=== PATIENT | female | born 1945 | race Caucasian/White ===

== ENCOUNTER 2023-07-25 07:13 | Inpatient (IN) | payer MEDICARE, OTHER, SELFPAY ==
[2023-07-25] VITALS (14 sets, daily range): BP systolic 108–166; BP diastolic 39–70; PULSE 72–92; RESP 17–25; TEMP 36.8–37.1; O2SAT 90–95; BMI 25.0
--- NOTE | 2023-07-25 07:35 | XR_ITS ---
WS: [id number] Exam: XR chest 1V portable [id number] Date/Time of Exam: 07/25/2023 7:42 AM Reason For Exam: dyspnea/cough No previous exams. There is plaque atelectasis in the mid RIGHT lung. The lungs are otherwise clear a nd fully inflated. Normal heart size. No pleural effusions. The mediastinum is normal in contour. Bon y structures appear normal. IMPRESSION: 1. Plaque atelectasis in the RIGHT midlung zone. 2. No acute process noted.
[2023-07-25] MEDS: metoclopramide 5 mg/mL SDV 2 mL 10 MG IVP (07:41)
[2023-07-25 07:48] LABS: Basophils # 0.1 10^3/uL (0.0-0.1); Basophils % 0.5 %; Eosinophils % 0.1 %; Hematocrit 44.5 % (36-47); Lymphocytes # 0.8 10^3/uL (0.8-4.8); Lymphocytes % 5.4 %; Mean Corpuscular HGB Conc 33.5 g/dL (30-55); Mean Corpuscular Hemoglobin 30.9 pg (27-33); Mean Corpuscular Volume 92.3 fl (85-98); Mean Platelet Volume 10.1 fL (7.4-10.4); Monocytes # 1.1 10^3/uL (0.2-0.9); Monocytes % 6.9 %; Neutrophils % 86.8 %; Nucleated Red Blood Cells % 0 %; Platelet Count 274 10^3/cmm (157-399); Red Blood Count 4.82 10^6/uL (3.85-5.65); Red Cell Distribution Width 11.8 % (12.1-15.1); White Blood Count 15.23 10^3/uL (3.29-11.43)
--- NOTE | 2023-07-25 07:51 | ECG_ITS ---
[facility] Test Date: 2023-07-25 Pat Name: Praveena Juan Department: Room: Gender: Female Detective Narcotics And Vice: : 1945 Requested By: Ajit Groves Order Number: [id number] Karol MD: Kody Wilson M.D. Measurements Intervals [place] Rate: 84 P: 57 CO: 171 QRS: 13 QRSD: 85 T: 57 QT: 270 QTc: 319 Interpretive Statements SINUS RHYTHM NONSPECIFIC T-WAVE ABNORMALITY No previous ECG available for comparison Electronically Signed On 07-25-2023 21:03:44 COMPOSITE BOND WORKER by Kody Wilson M.D. [id number]
--- NOTE | 2023-07-25 07:54 | ED_ITS ---
HPI - Altered Mental Status 2 General: Chief Complaint: Altered Mental Status Stated Complaint: ams, trouble swallowing Time Seen by Provider: 07/25/23 07:34 Source: patient Mode of arrival: ambulatory History of Present Illness: 78-year-old female presents emergency ro om with her daughter. She is confused overnight coughing having some vomiting and generally weak. She has previously had esophageal impaction 6 months ago had a EGD and was dilated. I do not recall a particular food that fever to get stuck today she has not had any fever sweats or chills. Difficult to get to answer questions. I have to continually redirect her to follow. She denies chest pain or abdominal pain denies dysuria. Family has not noted any hemoptysis or coffee-ground emesis MD complaint: altered mental status and confusion Onset (ago): hour(s) Severity: moderate Consistency of symptoms: Getting Worse Review of Systems 2 Const: Denies: fever(s) or chills Card: Denies: chest pain Resp: Denies: dyspnea GI: Denies: abdominal pain : Denies: dysuria, urinary frequency or urinary urgency Skin/Breast: Denies: rash PFSH ED 2 PFSH: Medical History (Updated 07/29/23 @ 08:22 by Ajit Diaz DO) Hyperlipidemia Depression Dementia Esophageal stricture Social History (Updated 07/25/23 @ 12:32 by Jack Oviedo MD) Smoking and tobacco/nicotine status: never used tobacco/nicotine Alcohol intake: never Physical Exam 2 Const: COMMON NORMALS: no acute distress GENERAL APPEARANCE: cooperative and comfortable ORIENTATION/CONSCIOUSNESS: Yes awake, Yes oriented to person, Yes oriented to place and Yes oriented to time HENMT: COMMON NORMALS: normocephalic, atraumatic and hearing grossly normal bilaterally HEAD & SCALP: normocephalic and atraumatic Resp: COMMON NORMALS: normal respiratory effort, No retractions, No use of accessory muscles and clear to auscultation bilaterally AUSCULTATION: clear to auscultation bilaterally Cardio: COMMON NORMALS: regular rate, regular rhythm and No murmurs present (Cardio) RATE: regular rate RHYTHM: regular rhythm GI: COMMON NORMALS: Soft to palpation and No hepatosplenomegaly present A USCULTATION: Yes normoactive bowel sounds PALPATION: Yes Soft to palpation, No Tenderness to palpation present (GI), No Guarding due to palpation present (GI) and Yes No hepatosplenomegaly present Extremity: COMMON NORMALS: normal to inspection, capillary refill normal, no clubbing, cyanosis or edema, no calf tenderness and no pedal edema Neuro: SENSORIUM/ORIENTATION: Yes oriented to person, Yes oriented to place and Yes oriented to time Skin: COMMON NORMALS: no rashes or lesions noted GENERAL SKIN EXAM: no rashes or lesions noted Course 2 Vital Signs: Vital signs: Vital Signs Temperature 98.1 F 07/26/23 08:00 Pulse Rate 69 07/26/23 08:00 Respiratory Rate 18 07/26/23 08:00 Blood Pressure 128/74 07/26/23 08:00 Pulse Oximetry 89 L 07/26/23 09:54 Oxygen Delivery Me thod Room Air 07/26/23 08:00 Oxygen Flow Rate 2 07/26/23 08:00 MDM - Altered Mental Status Medical Decision Making Pneumonia. Patient has a history of esophageal stricture with we did do a swallow test in the emergency room she was able to swallow without vomiting or having any coughing. Her pneumonia is right upper lobe initially started on ceftriaxone and Zithromax discussed with hospitalist orders written therapy to evaluate and cover for possible aspiration. Family initially had stated the patient was not behaving normally seemed off. She has some baseline dementia this resolved after oxygen was applied Medical Records I reviewed the patient's medical records. Lab Data I reviewed the patient's lab results. 07/26/23 05:24 07/26/23 05:24 Laboratory Results WBC 15.23 10^3/uL (3.29-11.43) H 07/25/23 07:30 RBC 4.82 10^6/uL (3.85-5.65) 07/25/23 07:30 Hgb 14.90 g/dL (11.27-16.99) 07/25/23 07:30 Hct 44.5 % (36-47) 07/25/23 07:30 MCV 92.3 fl (85-98) 07/25/23 07:30 MCH 30.9 pg (27-33) 07/25/23 07:30 MCHC 33.5 g/dL (30-55) 07/25/23 07:30 RDW 11.8 % (12.1-15.1) L 07/25/23 07:30 Plt Count 274 10^3/cmm (157-399) 07/25/23 07:30 MPV 10.1 fL (7.4-10.4) 07/25/23 07:30 Neut % (Auto) 86.8 % 07/25/23 07:30 Lymph % (Auto) 5.4 % 07/25/23 07:30 [place] % (Auto) 6.9 % 07/25/23 07:30 Eos % (Auto) 0.1 % 07/25/23 07:30 Baso % (Auto) 0.5 % 07/25/23 07:30 Neut # (Auto) 13.20 10^3/uL (1.8-7.7) H 07/25/23 07:30 Lymph # (Auto) 0.8 10^3/uL (0.8-4.8) 07/25/23 07:30 [place] # (Auto) 1.1 10^3/uL (0.2-0.9) H 07/25/23 07:30 Eos # (Auto) 0.0 10^3/uL (0.0-0.8) 07/25/23 07:30 Baso # (Auto) 0.1 10^3/uL (0.0-0.1) 07/25/23 07:30 Nucleated RBC % (auto) 0 % 07/25/23 07:30 Nucleated RBCs # 0.0 /100WBC 07/25/23 07:30 Sodium 140 mmol/L (136-145) 07/25/23 08:05 Potassium 4.0 mmol/L (3.5-5.1) 07/25/23 08:05 Chloride 102 mmol/L (98-107) 07/25/23 08:05 Carbon Dioxide 25 mmol/L (22-29) 07/25/23 08:05 Anion Gap 17.0 (5-19) 07/25/23 08:05 BUN 11 mg/dL (8-23) 07/25/23 08:05 Creatinine 0.6 mg/dL (0.5-0.9) 07/25/23 08:05 GFR Calculation Not Reportable 07/25/23 08:05 Glucose 136 mg/dL (65-115) H 07/25/23 08:05 Calculated Osmolality 291 mOsm/kg (285-295) 07/25/23 08:05 Lactic Acid 2.1 mmol/L (0.5-2.2) 07/25/23 08:05 Calcium 9.3 mg/dL (8.5-10.5) 07/25/23 08:05 Magnesium 2.1 mg/dL (1.7-2.3) 07/25/23 08:05 Total Bilirubin 0.3 mg/dL (0.15-1.2) 07/25/23 08:05 AST 21 U/L (0-32) 07/25/23 08:05 ALT 18 U/L (0-33) 07/25/23 08:05 Alkaline Phosphatase 111 U/L (35-105) H 07/25/23 08:05 Creatine Kinase 64 U/L (26-192) 07/25/23 08:05 Troponin T Baseline 9 ng/L (0-10) 07/25/23 08:05 Troponin T 120 Minute 8.82 ng/L (0-10) 07/25/23 10:15 Delta Troponin T -0.18 ABS# (0-10) L 07/25/23 10:15 Total Protein 6.7 g/dL (6.6-8.7) 07/25/23 08:05 Albumin 4.1 g/dL (3.5-5.2) 07/25/23 08:05 Globulin 2.6 g/dL (1.3-4.6) 07/25/23 08:05 Lipase 47 U/L (13-60) 07/25/23 08:05 Urine Color Yellow (Yellow) 07/25/23 08:00 Urine Appearance Sl hazy (CLEAR) A 07/25/23 08:00 Urine pH 5 (5-7) 07/25/23 08:00 Ur Specific [place] 1.020 (1.005-1.030) 07/25/23 08:00 Urine Protein Neg (Negative) 07/25/23 08:00 Urine Glucose (UA) Norm (Normal) 07/25/23 08:00 Urine Ketones Negative (Negative) 07/25/23 08:00 Urine Blood Neg (Negative) 07/25/23 08:00 Urine Nitrate Negative (Negative) 07/25/23 08:00 Urine Bilirubin Neg (Negative) 07/25/23 08:00 Urine Urobilinogen Neg mg/dL (Negative) 07/25/23 08:00 Ur Leukocyte Esterase Negative (Negative) 07/25/23 08:00 Urine RBC Rare /hpf (0-2) 07/25/23 08:00 Urine WBC 0-4 /hpf (0-5) H 07/25/23 08:00 Ur Squamous Epith Cells 0-4 /hpf (0-5) H 07/25/23 08:00 Amorphous Sediment Not Reportable 07/25/23 08:00 Urine Bacteria Trace /hpf (NONE) 07/25/23 08:00 Urine Mucus 1+ /hpf 07/25/23 08:00 Coronavirus 229E (PCR) Not detected (NOT DETECT) 07/25/23 10:40 Influenza Type A Ag negative (Negative) 07/25/23 10:40 Influenza Type B Ag negative (Negative) 07/25/23 10:40 SARS-CoV-2 (PCR) Not detected (NOT DETECT) 07/25/23 10:40 All radiology interpretation(s) finalized by discharge Discharge Plan Discharge Patient Disposition: Admitted As Inpatient Admit Provider: Jack Oviedo Clinical Impression: Pneumonia, Dementia, Esophageal stricture Condition: Stable Discharge Diet: Usual diet Discharge Activity: Increase activity as tolerated Coding Level of Care Code ED Frame Bender for Isidro Abrams
[2023-07-25 08:36] LABS: Alanine Aminotransferase 18 U/L (0-33); Albumin Level 4.1 g/dL (3.5-5.2); Alkaline Phosphatase 111 U/L (35-105); Aspartate Amino Transferase 21 U/L (0-32); Blood Urea Nitrogen 11 mg/dL (8-23); Calcium 9.3 mg/dL (8.5-10.5); Carbon Dioxide 25 mmol/L (22-29); Chloride 102 mmol/L (98-107); Creatinine Clr Calc Pharmacy 61.3501; Globulin 2.6 g/dL (1.3-4.6); Glucose 136 mg/dL (65-115); Lipase 47 U/L (13-60); Magnesium 2.1 mg/dL (1.7-2.3); Osmolality Calculated 291 mOsm/kg (285-295); Sodium 140 mmol/L (136-145); Total Bilirubin 0.3 mg/dL (0.15-1.2); Total Protein 6.7 g/dL (6.6-8.7)
[2023-07-25 08:38] LABS: Lactic Sepsis W/Reflex 2.1 mmol/L (0.5-2.2)
[2023-07-25 08:48] LABS: Add Urine Culture? No; Add Urine Microscopic? YES; Bacteria Urine TRACE /hpf; Bilirubin Urine Neg (Negative); Blood Urine Neg (Negative); Glucose Urine UA Norm (Normal); Ketones Urine Negative (Negative); Leukocyte Esterase Urine Negative (Negative); Mucus Urine 1+ /hpf; Nitrate Urine Negative (Negative); Protein Urine Neg (Negative); RBC Urine RARE /hpf (0-2); Squamous Epithelial Cell Urine 0-4 /hpf (0-5); Urine Appearance SL Hazy (CLEAR); Urine Color Yellow (Yellow); Urobilinogen Urine Neg (Negative); WBC Urine 0-4 /hpf (0-5); pH Urine 5 (5-7)
[2023-07-25 08:49] LABS: Troponin(5th) Baseline 9 ng/L (0-10)
[2023-07-25 08:50] LABS: Creatine Phosphokinase 64 U/L (26-192)
--- NOTE | 2023-07-25 08:55 | PC.PHAR ---
OTHER DAUGHTER WILL BE OVER SHORTLY TO VERIFY MEDICATIONS AND ADD SUPPLEMENTS. 07/25/23
--- NOTE | 2023-07-25 09:16 | CT_ITS ---
WS: [id number] CT HEAD NONCONTRAST HISTORY: Altered mental status TECHNIQUE: Contiguous axial imaging performed through the brain in 3.0 mm imaging. Bone and soft tiss ue windows. Sagittal and coronal reformats reviewed. All CT scans at [facility] use at least one of these dose optimization techniques: automated exposure control; mA and/or kV adjustment per pa tient size (includes targeted exams where dose is matched to clinical indication); or iterative recon struction. DLP: 1040.88 mGy.cm COMPARISON: None available. No acute intracranial hemorrhage, midline shift or mass effect. Mild atrophy and mild small vessel ischemic disease. No prior infarct. No lacunar infarcts. Ventricles: Normal size with no hydrocephalus. No inferior displacement of the cerebellar tonsils. Paranasal sinuses: As visualized are clear. Mastoid air cells: Well pneumatized. Cerumen in the LEFT external auditory canal. Calvarium and scalp: Skull is intact with no soft tissue edema or swelling. IMPRESSION: 1. No acute intracranial hemorrhage or edema. 2. Mild atrophy and small vessel ischemic disease.
--- NOTE | 2023-07-25 09:51 | PC.PHAR ---
MEDICATIONS VERIFIED BY DAUGHTER AND ADDED OTC FLAXSEED, MULTIVITAMIN, AND PRESERVISION 2
[2023-07-25 10:01] LABS: Reflex Lactate Order REFLEX LACTIC ORDERD
[2023-07-25] MEDS: cefTRIAXone 1,000 MG in sodium chloride 0.9% (plus) 50 ML 100 MG IV (10:18)
--- NOTE | 2023-07-25 10:27 | ECG_ITS ---
[facility] Test Date: 2023-07-25 Pat Name: Praveena Juan Department: Room: Gender: Female Professor Of Pathology: : 1945 Requested By: Ajit Groves Order Number: [id number] Karol MD: Kody Wilson M.D. Measurements Intervals [place] Rate: 77 P: 62 MT: 172 QRS: 15 QRSD: 86 T: 32 QT: 313 QTc: 355 Interpretive Statements SINUS RHYTHM NONSPECIFIC T-WAVE ABNORMALITY Compared to ECG 07/25/2023 07:51:50 No significant changes Electronically Signed On 07-25-2023 21:14:59 GUMMED TAPE PRESS OPERATOR by Kody Wilson M.D. [email or web address] [email or web address] [email or web address] [email or web address] [email or web address]/store/[id number]
[2023-07-25 10:49] LABS: Troponin 5 2HR 8.82 ng/L (0-10)
[2023-07-25 10:50] LABS: Troponin 5 2HR Delta -0.18 ABS# (0-10)
[2023-07-25] MEDS: azithromycin 500 MG in sodium chloride 0.9% 250 ML 250 MG IV (10:51)
[2023-07-25 11:12] LABS: Influenza A by IFA negative (Negative); Influenza B by IFA negative (Negative)
--- NOTE | 2023-07-25 11:49 | P.HP_ITS ---
Documented by User: NEAL Macias [facility] [[email or web address] 07/25/23 12:59 Providers/Chief Complaint 2 Chief Complaint: ams, trouble swallowing History of Present Illness Praveena Juan is a 78 year old female who has past medical history of dementia, esophageal stricture, anxiety, depression, and hyperlipidemia who presents today to the emergency department for altered mental status and trouble swallowing. Patient is a 78-year-old female with past medical history of esophageal stricture, hyperlipidemia, and dementia presents to the emergency department today for evaluation of altered mental status and trouble swallowing. Mrs. Juan lives at home with her , this morning her found her standing in front of the bathroom mirror gagging and shaking a lot . He reports that she would not respond to him so he brought her in to be evaluated. Patient was poor historian due to underlying mild dementia, at bedside was able to answer most of the questions. Mrs. Keene has been coughing up thick yellow phlegm the last 2 weeks, and reports that she does not wear oxygen at home but is currently requiring supplemental oxygen at 2 L nasal cannula. She has been taking Tylenol and cough drops as needed at home but this has not alleviated her symptoms. Patient denies fever, chills, or aspirating on food or home medications. About 6 months ago Mrs. Juan had her esophagus dilated due to previous frequent aspiration/ esophageal stricture. It is noted that this is the first time she has had a dilation. Has been reports that her swallowing has been better since then. While in ED patient received azithromycin, rocephin, and reglan. COVID PCR and flu swabs were obtained and pending currently. Blood cultures, CBC, BMP, troponin, UA, EKG, chest x-ray, head CT were obtained. Patient to be be transferred to Medical Surgical floor. Review of Systems 2 Const: Denies: fever(s), chills, change in appetite or night sweats Eyes: Denies: change in vision, blurry vision, eye discharge or eye redness ENMT: Reports: dry mouth; Denies: throat pain, enlarged tonsils, odynophagia, oral sores or nasal congestion Card: Denies: chest pain, palpitations, edema or swelling of feet/ankles Resp: Reports: dyspnea, productive cough and change in phlegm color GI: Reports: dysphagia and diarrhea; Denies: abdominal pain, nausea or vomiting : Reports: urinary frequency; Denies: flank pain or difficulty voiding Musc: Denies: neck pain, back pain or extremity pain Skin/Breast: Denies: rash, pruritus, erythema or skin swelling Neuro: Reports: confusion; Denies: headache(s) Medications/Allergies Home Medications Medication Instructions Recorded Confirmed Last Taken Type alprazolam 0.25 mg tablet 0.25 mg PO TID PRN Anxiety 07/25/23 07/25/23 07/24/23 History citalopram 10 mg tablet 10 mg PO QAM 07/25/23 07/25/23 07/25/23 History citalopram 20 mg tablet 20 mg PO QAM 07/25/23 07/25/23 07/25/23 History donepezil 10 mg tablet 10 mg PO BID 07/25/23 07/25/23 07/25/23 History flaxseed oil 1,000 mg capsule 1,000 mg PO DAILY 07/25/23 07/25/23 07/25/23 History gemfibrozil 600 mg tablet 600 mg PO BID 07/25/23 07/25/23 07/25/23 History memantine 10 mg tablet 10 mg PO BID 07/25/23 07/25/23 07/25/23 History multivitamin 1 tab PO DAILY 07/25/23 07/25/23 07/25/23 History omeprazole 40 mg capsule,delayed 40 mg PO QAM 07/25/23 07/25/23 07/25/23 History release pravastatin 20 mg tablet 20 mg PO BEDTIME 07/25/23 07/25/23 07/24/23 History trazodone 100 mg tablet 100 mg PO BEDTIME 07/25/23 07/25/23 07/24/23 History vit C 250 mg-vit E 90 mg-zinc 40 1 tab PO BID 07/25/23 07/25/23 07/25/23 History mg-copper 1 [id number]-[id number] capsule (PreserVision AREDS-2) Allergies Allergy/AdvReac Type Severity Reaction Status Date / Time No Known Allergies Allergy Verified 07/25/23 07:23 PFSH Acute 2 PFSH: Medical History (Updated 07/25/23 @ 12:32 by Jack Oviedo MD) Hyperlipidemia Depression Dementia Esophageal stricture Social History (Updated 07/25/23 @ 12:32 by Jack Oviedo MD) Smoking and tobacco/nicotine status: never used tobacco/nicotine Alcohol intake: never Vitals/I&O/Wt Last Vital Signs Temp 98.5 F 07/25/23 07:20 Pulse 74 07/25/23 11:00 Resp 20 H 07/25/23 11:00 BP 108/43 07/25/23 11:00 Pulse Ox 90 07/25/23 11:00 O2 Del Method Nasal Cannula 07/25/23 11:00 O2 Flow Rate 2 07/25/23 11:00 07/24/23 07/25/23 07/25/23 22:59 06:59 14:59 Intake Total 50 / 50 Balance 50 / 50 Weight last 48 hrs Weight 160 lb Physical Exam 2 Narrative: General exam is a white female, occasional coughing fits. HEENT: Atraumatic and normocephalic. Oropharynx clear Neck is supple no lymphadenopathy or thyromegaly Cardiovascular regular rate and rhythm, 2/6 systolic murmur. Lungs clear bilateral upper lobes, diminished in lower lobes. On 2L NC. Abdomen is soft with positive bowel sounds. No obvious organomegaly exam is deferred Extremities no edema noted. Skin no rash noted Neuro no focal deficits, mild underlying dementia Data 07/25/23 07:30 07/25/23 08:05 Other Labs: WBC 15, Neut# 13 Troponin WNLs UA normal. Flu negative, Covid PCR pending. Blood cultures pending. EKG: Sinus rhythm with a heart rate in the 70s. Head CT IMPRESSION: 1. No acute intracranial hemorrhage or edema. 2. Mild atrophy and small vessel ischemic disease. Chest X-ray IMPRESSION: 1. Plaque atelectasis in the RIGHT midlung zone. 2. No acute process noted. Micro: Microbiology 07/25/23 08:11 Blood Culture - Preliminary Blood SPECIMEN COLLECTED 07/25/23 08:05 Blood Culture - Preliminary Blood SPECIMEN COLLECTED A&P Assessment and plan (1) Pneumonia: IV Rocephin, Azithromycin Breathing treatments as needed. Oxygen supplementation, currently on 2L NC. Speech therapy to evaluate for possible aspiration due to history of esophageal stricture. Obtain sputum culture (2) Hypoxia: Titrate oxygen as needed Breathing treatments as needed Inspiratory spirometer and flutter valve (3) Esophageal stricture: About 6 months ago patient had her esophagus dilated due to frequent aspiration/ esophageal stricture. It is noted that this is the first time she has had a dilation. Aspiration precautions Speech therapy to evaluate aspiration (4) Dementia: Acute encephalopathy secondary to pneumonia was suspected on arrival to emergency department, as family stated Mrs. Juan was not acting like herself this morning. It was later noted the patient has underlying dementia. During my evaluation with Mrs. Juan in the emergency department acute encephalopathy was ruled out as family at bedside stated Ms. Juan was back to her baseline. (5) Hyperglycemia: Continue to monitor Check A1c level Coding Level of Care Code 47191 Diagnoses Pneumonia J18.9 Hypoxia R09.02 Esophageal stricture K22.2 Dementia F03.90 Hyperglycemia R73.9 Time Spent (min) 59 Documented by User: Jack Oviedo MD 07/25/23 13:35 Providers/Chief Complaint 2 Admitting Physician: Jack Oviedo MD Chief Complaint: ams, trouble swallowing Medications/Allergies Home Medications Medication Instructions Recorded Confirmed Last Taken Type alprazolam 0.25 mg tablet 0.25 mg PO TID PRN Anxiety 07/25/23 07/25/23 07/24/23 History citalopram 10 mg tablet 10 mg PO QAM 07/25/23 07/25/23 07/25/23 History citalopram 20 mg tablet 20 mg PO QAM 07/25/23 07/25/23 07/25/23 History donepezil 10 mg tablet 10 mg PO BID 07/25/23 07/25/23 07/25/23 History flaxseed oil 1,000 mg capsule 1,000 mg PO DAILY 07/25/23 07/25/23 07/25/23 History gemfibrozil 600 mg tablet 600 mg PO BID 07/25/23 07/25/23 07/25/23 History memantine 10 mg tablet 10 mg PO BID 07/25/23 07/25/23 07/25/23 History multivitamin 1 tab PO DAILY 07/25/23 07/25/2324 History omeprazole 40 mg capsule,delayed 40 mg PO QAM 07/25/23 07/25/23 07/25/23 History release pravastatin 20 mg tablet 20 mg PO BEDTIME 07/25/23 07/25/23 07/24/23 History trazodone 100 mg tablet 100 mg PO BEDTIME 07/25/23 07/25/23 07/24/23 History vit C 250 mg-vit E 90 mg-zinc 40 1 tab PO BID 07/25/23 07/25/23 07/25/23 History mg-copper 1 [id number]-gwvmwe capsule (PreserVision AREDS-2) Allergies Allergy/AdvReac Type Severity Reaction Status Date / Time No Known Allergies Allergy Verified 07/25/23 07:23 PFSH Acute 2 PFSH: Medical History (Updated 07/25/23 @ 12:32 by Jack Oviedo MD) Hyperlipidemia Depression Dementia Esophageal stricture Social History (Updated 07/25/23 @ 12:32 by Jack Oviedo MD) Smoking and tobacco/nicotine status: never used tobacco/nicotine Alcohol intake: never Data 07/25/23 07:30 07/25/23 08:05 Other data: Chest x-ray per my review demonstrates a right platelike atelectasis and infiltrate EKG per my review demonstrates sinus rhythm, normal axis, nonspecific ST T wave abnormality CT head per my review no hemorrhage, acute change A&P Assessment and plan (1) Pneumonia: (2) Hypoxia: (3) Esophageal stricture: About 6 months ago patient had her esophagus dilated due to frequent aspiration/ esophageal stricture. It is noted that this is the first time she has had a dilation. Aspiration precautions (4) Dementia: (5) Hyperglycemia: Plan Other medical problems as listed in past medical history Full code Lovenox for DVT prophylaxis Attestations 2 Medical Necessity Statement*: Will require greater than 2 midnight stay for evaluation of pneumonia with hypoxia as well as treatment with IV antibiotics. Diagnoses Pneumonia J18.9 Hypoxia R09.02 Esophageal stricture K22.2 Dementia F03.90 Hyperglycemia R73.9 Time Spent (min) 59
[2023-07-25 12:37] LABS: Adenovirus Not Detected (NOT DETECT); Chlamydia Pneumoniae Not Detected (NOT DETECT); Coronavirus 229E,HKU1,NL63,OC4 Not Detected (NOT DETECT); Human Metapneumovirus Not Detected (NOT DETECT); Human Rhinovirus/Enterovirus Not Detected (NOT DETECT); Influenza A Not Detected (NOT DETECT); Influenza A H1 Not Detected (NOT DETECT); Influenza A H1-2009 Not Detected (NOT DETECT); Influenza A H3 Not Detected (NOT DETECT); Influenza B Not Detected (NOT DETECT); Mycoplasma Pneumoniae Not Detected (NOT DETECT); Parainfluenza Virus Type 1 Not Detected (NOT DETECT); Parainfluenza Virus Type 2 Not Detected (NOT DETECT); Parainfluenza Virus Type 3 Not Detected (NOT DETECT); Parainfluenza Virus Type 4 Not Detected (NOT DETECT); Respiratory Syncytial Virus A Not Detected (NOT DETECT); Respiratory Syncytial Virus B Not Detected (NOT DETECT); SARS-COV-2 Not Detected (NOT DETECT)
--- NOTE | 2023-07-25 13:53 | ECG_ITS ---
[facility] Test Date: 2023-07-25 Pat Name: Praveena Juan Department: Room: 273 Gender: Female Electric Bath Attendant: : 1945 Requested By: Ajit Groves Order Number: [id number] Reading MD: Kody Wilson M.D. Measurements Intervals [place] Rate: 75 P: 51 SC: 192 QRS: 7 QRSD: 89 T: 18 QT: 399 QTc: 447 Interpretive Statements SINUS RHYTHM NONSPECIFIC T-WAVE ABNORMALITY Compared to ECG 07/25/2023 10:27:27 No significant changes Electronically Signed On 07-25-2023 21:17:03 SHIP ENGINES OPERATING ENGINEER by Kody Wilson M.D. [id number]
[2023-07-25] MEDS: ipratropium-albuterol 3 mL Neb INHALATION ×2 (16:07→20:59)
[2023-07-25 16:38] LABS: Troponin 5 6HR 16.15 ng/L (0-10); Troponin 5 6HR Delta 7.15 ng/L (0-12)
[2023-07-25] MEDS: gemfibrozil 600 mg Tablet PO (18:03)
[2023-07-25] MEDS: memantine 5 mg tablet 10 MG PO (18:03)
[2023-07-25] MEDS: donepezil 5 MG Tablet 10 MG PO (18:03)
[2023-07-25] MEDS: enoxaparin 40 mg/0.4 mL Syringe SUBCUT (18:03)
[2023-07-25] MEDS: ALPRAZolam 0.5 mg Tablet 0.25 MG PO (20:59)
[2023-07-25] MEDS: atorvastatin 40 mg Tablet 20 MG PO (21:00)
[2023-07-25] MEDS: trazodone 100 mg Tablet PO (21:00)
[2023-07-26] VITALS: BP 107/58; PULSE 68; RESP 18; TEMP 36.8; O2SAT 92
[2023-07-26 05:00] VITALS: BP 116/66; PULSE 67; RESP 18; TEMP 36.8; O2SAT 94
[2023-07-26 05:29] VITALS: PULSE 69
[2023-07-26] MEDS: citalopram 20 mg Tablet PO (05:39)
[2023-07-26] MEDS: pantoprazole DR 40 mg Tablet PO (05:39)
[2023-07-26] MEDS: citalopram 20 mg Tablet 10 MG PO (05:39)
[2023-07-26 06:03] LABS: Basophils # 0.1 10^3/uL (0.0-0.1); Basophils % 0.5 %; Eosinophils # 0.1 10^3/uL (0.0-0.8); Eosinophils % 1.2 %; Hematocrit 38.6 % (36-47); Lymphocytes # 1.9 10^3/uL (0.8-4.8); Lymphocytes % 20.1 %; Mean Corpuscular HGB Conc 33.2 g/dL (30-55); Mean Corpuscular Hemoglobin 31.4 pg (27-33); Mean Corpuscular Volume 94.8 fl (85-98); Mean Platelet Volume 10.2 fL (7.4-10.4); Monocytes % 10.7 %; Neutrophils # 6.41 10^3/uL (1.8-7.7); Neutrophils % 67.1 %; Nucleated Red Blood Cells % 0 %; Platelet Count 237 10^3/cmm (157-399); Red Blood Count 4.07 10^6/uL (3.85-5.65); Red Cell Distribution Width 11.8 % (12.1-15.1); White Blood Count 9.55 10^3/uL (3.29-11.43)
[2023-07-26 06:33] LABS: Alanine Aminotransferase 13 U/L (0-33); Albumin Level 3.5 g/dL (3.5-5.2); Alkaline Phosphatase 90 U/L (35-105); Anion Gap 9.8 (5-19); Aspartate Amino Transferase 17 U/L (0-32); Blood Urea Nitrogen 14 mg/dL (8-23); Calcium 8.3 mg/dL (8.5-10.5); Carbon Dioxide 28 mmol/L (22-29); Chloride 105 mmol/L (98-107); Creatinine Clr Calc Pharmacy 63.0577; Globulin 2.5 g/dL (1.3-4.6); Glucose 121 mg/dL (65-115); Osmolality Calculated 290 mOsm/kg (285-295); Potassium 3.8 mmol/L (3.5-5.1); Sodium 139 mmol/L (136-145); Total Bilirubin 0.4 mg/dL (0.15-1.2)
[2023-07-26 08:00] VITALS: BP 128/74; PULSE 69; PULSE 73; RESP 16; RESP 18; TEMP 36.7; O2SAT 90; O2SAT 95
[2023-07-26] MEDS: ipratropium-albuterol 3 mL Neb INHALATION (08:52)
[2023-07-26] MEDS: donepezil 5 MG Tablet 10 MG PO (09:40)
[2023-07-26] MEDS: gemfibrozil 600 mg Tablet PO (09:41)
[2023-07-26] MEDS: memantine 5 mg tablet 10 MG PO (09:42)
[2023-07-26 09:54] VITALS: O2SAT 89; O2SAT 90
--- NOTE | 2023-07-26 10:22 | PM.DCS ---
Discharge Providers Date of Admission: 07/25/23 11:07 Date of Discharge: July 26, 2023 Attending Provider at Admission: Jack Oviedo MD Attending Provider at Discharge: Jack Oviedo MD Diagnoses at Discharge Discharge Diagnosis (1) Pneumonia: Status: Acute (2) Hypoxia: Status: Acute (3) Esophageal stricture: Status: Acute (4) Dementia: Status: Acute (5) Hyperglycemia: Status: Acute Reason for Visit Reason for Visit: ams, trouble swallowing Hospital Course Hospital Course Praveena is a 78-year-old white female with history of dementia and esophageal stricture who presented to the hospital with coughing up yellowish sputum, increased confusion. She was found to be slightly hypoxic, and platelike atelectasis right middle lobe and concern of pneumonia. White blood cell count was slightly elevated. She was placed on Rocephin and azithromycin, and placed on observation in the hospital. Overnight she seemed to improve. Mental status was at close to baseline according to . It was thought she could go home. She was not requiring oxygen after home oxygen evaluation. She did not have any trouble swallowing the next morning. Family was present during my discussion regarding discharge with the patient and the , and ask appropriate questions and agreed with the plan. I asked that she follow-up with her primary care provider in 3 to 5 days. I also added an 81 mg aspirin daily to her regimen. She will finish up a short course of antibiotics. She had no chest discomfort during her hospital stay or on presentation. COVID and influenza were negative. I asked that she follow-up with her primary care provider in approximately 3 to 5 days. Physical Exam Narrative: General exam no distress Neck supple Cardiovascular regular rate and rhythm Lungs clear Abdomen is soft Extremities no sinus clubbing edema Discharge Data Studies Completed and Pending Completed Studies During Hospitalization Category Date Time Status CT head wo con* [id number] Stat Cat Scan 07/25/23 09:16 Completed XR chest 1V portable [id number] Stat Exams 07/25/23 07:35 Completed Pending at discharge Category Date Time Status Blood Culture Stat Lab 07/25/23 08:11 Results Sputum Culture and Gram Stain Routine Lab 07/25/23 13:22 Uncollected Laboratory Results WBC 9.55 10^3/uL (3.29-11.43) 07/26/23 05:24 RBC 4.07 10^6/uL (3.85-5.65) 07/26/23 05:24 Hgb 12.80 g/dL (11.27-16.99) 07/26/23 05:24 Hct 38.6 % (36-47) 07/26/23 05:24 MCV 94.8 fl (85-98) 07/26/23 05:24 MCH 31.4 pg (27-33) 07/26/23 05:24 MCHC 33.2 g/dL (30-55) 07/26/23 05:24 RDW 11.8 % (12.1-15.1) L 07/26/23 05:24 Plt Count 237 10^3/cmm (157-399) 07/26/23 05:24 MPV 10.2 fL (7.4-10.4) 07/26/23 05:24 Neut % (Auto) 67.1 % 07/26/23 05:24 Lymph % (Auto) 20.1 % 07/26/23 05:24 [place] % (Auto) 10.7 % 07/26/23 05:24 Eos % (Auto) 1.2 % 07/26/23 05:24 Baso % (Auto) 0.5 % 07/26/23 05:24 Neut # (Auto) 6.41 10^3/uL (1.8-7.7) 07/26/23 05:24 Lymph # (Auto) 1.9 10^3/uL (0.8-4.8) 07/26/23 05:24 Johnston # (Auto) 1.0 10^3/uL (0.2-0.9) H 07/26/23 05:24 Eos # (Auto) 0.1 10^3/uL (0.0-0.8) 07/26/23 05:24 Baso # (Auto) 0.1 10^3/uL (0.0-0.1) 07/26/23 05:24 Nucleated RBC % (auto) 0 % 07/26/23 05:24 Nucleated RBCs # 0.0 /100WBC 07/26/23 05:24 Sodium 139 mmol/L (136-145) 07/26/23 05:24 Potassium 3.8 mmol/L (3.5-5.1) 07/26/23 05:24 Chloride 105 mmol/L (98-107) 07/26/23 05:24 Carbon Dioxide 28 mmol/L (22-29) 07/26/23 05:24 Anion Gap 9.8 (5-19) 07/26/23 05:24 BUN 14 mg/dL (8-23) 07/26/23 05:24 Creatinine 0.7 mg/dL (0.5-0.9) 07/26/23 05:24 GFR Calculation Not Reportable 07/26/23 05:24 Glucose 121 mg/dL (65-115) H 07/26/23 05:24 Calculated Osmolality 290 mOsm/kg (285-295) 07/26/23 05:24 Lactic Acid 2.1 mmol/L (0.5-2.2) 07/25/23 08:05 Calcium 8.3 mg/dL (8.5-10.5) L 07/26/23 05:24 Magnesium 2.1 mg/dL (1.7-2.3) 07/25/23 08:05 Total Bilirubin 0.4 mg/dL (0.15-1.2) 07/26/23 05:24 AST 17 U/L (0-32) 07/26/23 05:24 ALT 13 U/L (0-33) 07/26/23 05:24 Alkaline Phosphatase 90 U/L (35-105) 07/26/23 05:24 Creatine Kinase 64 U/L (26-192) 07/25/23 08:05 Troponin T Baseline 9 ng/L (0-10) 07/25/23 08:05 Troponin T 120 Minute 8.82 ng/L (0-10) 07/25/23 10:15 Delta Troponin T -0.18 ABS# (0-10) L 07/25/23 10:15 Troponin T Hi Sens 6Hr 16.15 ng/L (0-10) H 07/25/23 15:10 Troponin T Hi Sens 6Hr Delta 7.15 ng/L (0-12) 07/25/23 15:10 Total Protein 6.0 g/dL (6.6-8.7) L 07/26/23 05:24 Albumin 3.5 g/dL (3.5-5.2) 07/26/23 05:24 Globulin 2.5 g/dL (1.3-4.6) 07/26/23 05:24 Lipase 47 U/L (13-60) 07/25/23 08:05 Urine Color Yellow (Yellow) 07/25/23 08:00 Urine Appearance Sl hazy (CLEAR) A 07/25/23 08:00 Urine pH 5 (5-7) 07/25/23 08:00 Ur Specific [place] 1.020 (1.005-1.030) 07/25/23 08:00 Urine Protein Neg (Negative) 07/25/23 08:00 Urine Glucose (UA) Norm (Normal) 07/25/23 08:00 Urine Ketones Negative (Negative) 07/25/23 08:00 Urine Blood Neg (Negative) 07/25/23 08:00 Urine Nitrate Negative (Negative) 07/25/23 08:00 Urine Bilirubin Neg (Negative) 07/25/23 08:00 Urine Urobilinogen Neg mg/dL (Negative) 07/25/23 08:00 Ur Leukocyte Esterase Negative (Negative) 07/25/23 08:00 Urine RBC Rare /hpf (0-2) 07/25/23 08:00 Urine WBC 0-4 /hpf (0-5) H 07/25/23 08:00 Ur Squamous Epith Cells 0-4 /hpf (0-5) H 07/25/23 08:00 Amorphous Sediment Not Reportable 07/25/23 08:00 Urine Bacteria Trace /hpf (NONE) 07/25/23 08:00 Urine Mucus 1+ /hpf 07/25/23 08:00 Coronavirus 229E (PCR) Not detected (NOT DETECT) 07/25/23 10:40 Influenza Type A Ag negative (Negative) 07/25/23 10:40 Influenza Type B Ag negative (Negative) 07/25/23 10:40 SARS-CoV-2 (PCR) Not detected (NOT DETECT) 07/25/23 10:40 Vitals Last Vital Signs Temp 98.1 F 07/26/23 08:00 Pulse 69 07/26/23 08:00 Resp 18 07/26/23 08:00 BP 128/74 07/26/23 08:00 Pulse Ox 89 L 07/26/23 09:54 O2 Del Method Room Air 07/26/23 08:00 O2 Flow Rate 2 07/25/23 20:58 Discharge Plan Discharge Patient Disposition: Home Condition: Stable Prescriptions: New azithromycin 250 mg Tablet 500 mg PO DAILY Qty: 1 0RF cefdinir 300 mg Capsule 300 mg PO BID Qty: 14 0RF aspirin 81 mg capsule 81 mg PO DAILY Qty: 30 0RF Continued multivitamin Tablet 1 tab PO DAILY citalopram 10 mg tablet 10 mg PO QAM Rx Instructions: TAKES WITH 20 MG TO =30MG donepezil 10 mg tablet 10 mg PO BID omeprazole 40 mg capsule,delayed release(DR/EC) 40 mg PO QAM flaxseed oil 1,000 mg Capsule 1,000 mg PO DAILY alprazolam 0.25 mg tablet 0.25 mg PO TID PRN (Reason: Anxiety) citalopram 20 mg tablet 20 mg PO QAM Rx Instructions: TAKES WITH 10 MG TO=30MG trazodone 100 mg tablet 100 mg PO BEDTIME gemfibrozil 600 mg tablet 600 mg PO BID pravastatin 20 mg tablet 20 mg PO BEDTIME memantine 10 mg tablet 10 mg PO BID PreserVision AREDS-2 250-90-40-1 mg Capsule 1 tab PO BID Discharge Orders: Discharge Order (Routine); Ordered 07/26/23 Ordered By: Jack Oviedo Referrals: Lalit Madrigal MD [Referring] - 4-7 days Discharge Diet: Usual diet Discharge Activity: Increase activity as tolerated Patient Instructions: Altered Mental Status (ED), Opioid Safety, Pain Management Activity Restrictions/Additional Instructions: Take all medicine as prescribed Follow-up with your primary care provider 3 to 5 days Finish antibiotics as noted Aspirin 81 mg daily. Note that patient only on cefdinir twice daily, for the next 7 days. The next dose of Zithromax should be tomorrow, and only 1 time. Discharge Attestations Time Spent in Discharge Care*: greater than 30 min Quality Metrics Clinical Quality Measures [ No reported AMI, CVA or VTE this stay] Coding Level of Care Code 52533 Total time (in minutes) for Discharge: 31 Diagnoses Pneumonia J18.9 Hypoxia R09.02 Esophageal stricture K22.2 Dementia F03.90 Hyperglycemia R73.9
[2023-07-26] MEDS: azithromycin 250 mg Tablet 500 MG PO (11:13)
[2023-07-26] MEDS: cefdinir 300 MG CAPSULE PO (11:13)
== END 2023-07-26 11:19 | disposition home health service (06) | DRG 195 ==
LOC: ER 10:59 → MEDSURG 12:57
PROVIDERS: Admitting Provider Internal Medicine; Emergency Provider Family Medicine; Visit Provider Internal Medicine
DX: J18.9 Pneumonia, unspecified organism (principal); K22.2 Esophageal obstruction; R73.9 Hyperglycemia, unspecified; F03.90 Unspecified dementia, unspecified severity, without behavioral disturbance, psychotic disturbance, mood disturbance, and anxiety; F41.9 Anxiety disorder, unspecified; F32.A Depression, unspecified; E78.5 Hyperlipidemia, unspecified; R41.82 Altered mental status, unspecified
CPT/HCPCS: 36415; 70450; 71045; 80053; 81001; 82550; 83605; 83690; 83735; 84484; 85025; 87040; 87635; 87804; 93005; 94640; 94669; 94760; 96365; 96367; 96372; 96375; 99285; J0456; J0696; J1650; J2765; J7050; Q0144